=== PATIENT | female | born 1940 | race Caucasian/White ===

== ENCOUNTER 2016-08-14 22:47 | Inpatient (IN) | payer MEDICARE, MEDICAID ==
[~2016-08-14] VITALS: Ht 170.2 cm; Wt 120.1 kg
[~2016-08-14 22:47] MED LIST: AMARYL1 MG PO; AMBIEN 5MG TABLE5 MG PO; AMITRIPTYLINE100 MG PO; ANTI-DIARRHEAL2 MG PO; ASPIRIN E.C. 8181 MG PO; ATIVAN 0.50.5 MG/TAB PO; BACTRIM DS 8001 TAB PO; BACTROBAN NASA0.9 GM NS; BENGAY ARTHRITI1 CRE; CALCIUM + D 6001 TAB PO; CELEXA 20MG20 MG/TAB PO; CLEOCIN HCL300 MG PO; COLACE 100100 MG/CAP PO; CORDARONE200 MG/TAB PO; COREG 6.256.25 MG/TA PO; COUMADIN 2MG2 MG/TAB PO; DEMADEX 20MG20 M1 PO; DESYREL 100MG100 MG PO; DESYREL 50MG50 MG PO; DESYREL DIVIDO150 M1 PO; DOXYCYCLINE 10100 MG PO; ELAVIL100 MG PO; ELIQUIS 2.5 PO; ENBREL50 MG/ML SC; FENTANYL 25 MCG TOP; FERROUS GL325 MG/TAB PO; FLEXERIL 1010 MG/TAB PO; FOLIC ACID 11 MG/TA1 PO; FOLIC ACID1 MG PO; GENTEAL0.32 OP; GLUCOPHAGE500 MG/TAB PO; HUMALOG100 U/ML SQ; HYDROCODONE/APAP PO; IMDUR 30MG30 MG/TAB PO; IRON325 MG PO; IRON65 M1 PO; K-DUR20 MEQ PO; K-TAB10 PO; LAMISIL250 M1; LASIX 20MG TABL20 MG PO; LASIX 40MG TABL40 MG PO; LEVAQUIN 750MG750 M1 PO; LEVOTHYROXIN0.088 M1 PO; LEXAPRO 10MG10 MG PO; LEXAPRO20 MG PO; LIPITOR 10MG10 MG PO; LISINOPRIL5 MG PO; LOPROX TP; LOTRIMIN1% TP; LOW DOSE ASPIRI81 MG PO; MAG-OX 400400 MG/TAB PO; METFORMIN500 MG PO; METHOTREX IM; METHOTREXA50 MG/2 ML IJ; METHOTREXA50 MG/2 ML SC; METHOTREXA50 MG/2 ML SQ; METOCLOPRAMIDE10 MG PO; METOPROLOL SUCC25 M1 PO; MILK OF MAGNESI30 ML PO; MILLIPRED DP5 MG PO; MIRALAX PA17 GM/Dose PO; MIRAPEX 1MG PO; MONODOX100 PO; MULTIPLE VITAMI1 T17 PO; NEXIUM40 MG PO; NORCO 325 MG-101 TAB PO; NORCO 325 MG-51 TAB PO; NOVOLOG 100U100 U/M1 SQ; NYAMYC100000 U/G TP; NYSTATIN POWDER15 GM; OTREXUP25 MG/0.4 SQ; OXY IR5 MG PO; PEPCID 20MG TAB20 MG PO; PERCOCET 325 MG1 TAB PO; PHENERGAN 25 TA25 MG PO; PRADAXA 150MG150 MG PO; PREDNISONE 5MG5 MG PO; PREDNISONE1 MG PO; PREDNISONE10 MG PO; PREDNISONE20 MG PO; PRIL40 PO; PROMETHAZINE12.5 M5 PO; REGLAN 10MG10 MG/TAB PO; REQUIP 1MG T1 MG/TAB PO; RESTASIS 60VL OP; RESTASIS0.05% OP; ROXICODONE 55 MG/TAB PO; SOMA 350MG350 MG/TAB PO; SOMA250 MG PO; SYNTHROID0.05 MG/TA PO; SYNTHROID0.112 MG/T PO; THEO-24100 MG PO; TYLENOL 325MG325 MG PO; ULTRAM 50MG TAB50 MG; VESICARE10 MG PO; VITAMIN C500 MG PO; WARFARIN2 MG PO; XANAX .25M0.25 MG/TA PO; ZAROXOLYN 2.52.5 MG PO; ZESTRIL 5MG5 MG PO; ZOFRAN 4MG T4 MG/TAB PO; ZYVOX 600MG600 MG PO; [UNRECOGNIZED DRUG - OTHER] PO
[2016-08-14 23:40] LABS: BASO % 0.2 % (0.0-2.0); EOS # 0.1 (0.0-0.7); EOS % 1.1 % (0-4.0); GRAN # 11.8 (1.4-6.5); GRAN % 89.9 % (42.2-75.2); LYMPH # 0.8 (1.2-3.4); LYMPH % 6.3 % (20.0-51.0); MEAN CELL VOLUME 92 fl (80.0-100.0); MEAN CORPUSCULAR HGB CONC 31 g/dl (33.0-37.0); MONO # 0.2 (0.1-0.6); MONO % 1.7 % (1.7-9.3); PLATELET COUNT 121 K/mm3 (130-400); RED BLOOD COUNT 2.87 M/mm3 (4.10-5.30); REDCELL DISTRIBUTION WIDTH-CV 18.5 % (11.5-14.5); WHITE BLOOD COUNT 13.1 K/mm3 (4.8-10.8)
[2016-08-14 23:42] LABS: HEMATOCRIT 26.4 % (37.0-47.0); HEMOGLOBIN 8.2 g/dl (12.5-16.0); MEAN CORPUSCULAR HEMOGLOBIN 29 pg (27.0-31.0)
[2016-08-14 23:55] LABS: ADJUSTED CALCIUM 9.3 mg/dL (8.4-10.2); ALBUMIN 3.9 gm/dL (3.5-5.0); BILIRUBIN,TOTAL 1.1 mg/dL (0.0-1.0); C-REACTIVE PROTEIN 3.1 mg/dL (0.0-0.9); CALCIUM 9.2 mg/dL (8.4-10.2); CREATININE, serum 1.11 mg/dL (0.52-1.25); POTASSIUM 4.1 mmol/L (3.4-5.0)
[2016-08-15] VITALS (929 sets, daily range): BP systolic 64–132; BP diastolic 29–79; PULSE 59–97; TEMP 98.2–101.2; O2SAT 74–100
[2016-08-15] MEDS ORDERED: NORCO 325 MG-101 TAB PO ×2 (00:04→00:05)
[2016-08-15] MEDS ORDERED: ZYVOX 600MG600 MG PO (00:05)
[2016-08-15] MEDS ORDERED: SYNTHROID0.125 MG/T PO (00:05)
[2016-08-15] MEDS ORDERED: DEMADEX 20MG20 M1 PO ×2 (00:06→00:29)
[2016-08-15] MEDS ORDERED: CORDARONE200 MG/TAB PO (00:06)
[2016-08-15] MEDS ORDERED: PREDNISONE 5MG5 MG PO (00:07)
[2016-08-15] MEDS ORDERED: ASPIRIN E.C. 8181 MG PO (00:07)
[2016-08-15] MEDS ORDERED: FOLIC ACID 11 MG/TA1 PO (00:08)
[2016-08-15] MEDS ORDERED: IMDUR 30MG30 MG/TAB PO (00:08)
[2016-08-15] MEDS ORDERED: PRILOSEC 20MG20 MG PO (00:08)
[2016-08-15] MEDS ORDERED: KLOR-CON M2020 MEQ PO (00:09)
[2016-08-15 00:10] LABS: PH 7 (5-8); SQUAMOUS EPITHELIAL 0-2 /hpf; URINE APPEARANCE Clear; URINE BACTERIA None Seen /hpf; URINE BILIRUBIN Negative (NEGATIVE); URINE BLOOD 1+ (NEGATIVE); URINE COLOR Yellow; URINE GLUCOSE Negative (NEGATIVE); URINE KETONE Negative (NEGATIVE); URINE RBC 0-2 /hpf; URINE UROBILINOGEN Negative (NEGATIVE)
[2016-08-15] MEDS ORDERED: LEXAPRO 10MG10 MG PO (00:10)
[2016-08-15] MEDS ORDERED: MIRALAX PA17 GM/Dose PO (00:10)
[2016-08-15] MEDS ORDERED: LIPITOR 10MG10 MG PO (00:10)
[2016-08-15] MEDS ORDERED: PROBIOTIC ACID1 EAC3 PO (00:12)
[2016-08-15] MEDS ORDERED: GLUCOPHAGE500 MG/TAB PO ×2 (00:12→00:13)
[2016-08-15] MEDS ORDERED: MAG-OX 400400 MG/TAB PO (00:13)
[2016-08-15] MEDS ORDERED: FERROUS GL325 MG/TAB PO (00:13)
[2016-08-15] MEDS ORDERED: HUMALOG100 U/ML SQ (00:16)
[2016-08-15] MEDS ORDERED: COREG 3.123.125 MG/T PO (00:17)
[2016-08-15] MEDS ORDERED: MONODOX100 PO (00:17)
[2016-08-15] MEDS ORDERED: ELIQUIS 2.5 PO (00:17)
[2016-08-15] MEDS ORDERED: METHOTREXATE50/2 SQ (00:28)
[2016-08-15] MEDS ORDERED: MIRAPEX1.5 MG PO (00:29)
[2016-08-15 07:16] LABS: PH 8 (5-8); SQUAMOUS EPITHELIAL None Seen /hpf; URINE APPEARANCE Clear; URINE BACTERIA None Seen /hpf; URINE BILIRUBIN Negative (NEGATIVE); URINE BLOOD Negative (NEGATIVE); URINE COLOR Yellow; URINE GLUCOSE Negative (NEGATIVE); URINE KETONE Negative (NEGATIVE); URINE RBC 0-2 /hpf; URINE UROBILINOGEN Negative (NEGATIVE); URINE WBC 0-2 /hpf
[2016-08-15 07:51] LABS: PROTHROMBIN TIME 22.9 SECONDS (9.7-12.8)
[2016-08-15 07:53] LABS: BASO % 0.2 % (0.0-2.0); EOS # 0.1 (0.0-0.7); EOS % 0.5 % (0-4.0); GRAN # 9.7 (1.4-6.5); GRAN % 90.7 % (42.2-75.2); LYMPH # 0.8 (1.2-3.4); LYMPH % 7.2 % (20.0-51.0); MEAN CELL VOLUME 91 fl (80.0-100.0); MEAN CORPUSCULAR HGB CONC 31 g/dl (33.0-37.0); MEAN PLATELET VOLUME 11.5 fl (7.4-10.4); MONO # 0.1 (0.1-0.6); MONO % 0.7 % (1.7-9.3); PLATELET COUNT 95 K/mm3 (130-400); REDCELL DISTRIBUTION WIDTH-CV 18.4 % (11.5-14.5); WHITE BLOOD COUNT 10.7 K/mm3 (4.8-10.8)
[2016-08-15 08:01] LABS: HEMATOCRIT 21.9 % (37.0-47.0); HEMOGLOBIN 6.8 g/dl (12.5-16.0); MEAN CORPUSCULAR HEMOGLOBIN 28 pg (27.0-31.0)
[2016-08-15 08:13] LABS: ADJUSTED CALCIUM 8.9 mg/dL (8.4-10.2); ALANINE AMINOTRANSFERASE 30 U/L (9-52); ALBUMIN 2.9 gm/dL (3.5-5.0); ALKALINE PHOSPHATASE 79 U/L (50-136); ANION GAP 11 mmol/L (7-16); BILIRUBIN,TOTAL 1.4 mg/dL (0.0-1.0); BLOOD UREA NITROGEN 18 mg/dL (7-17); CARBON DIOXIDE 27 mmol/L (22-30); CHLORIDE 100 mmol/L (98-107); CREATININE, serum 1.22 mg/dL (0.52-1.25); GLUCOSE 110 mg/dL (74-106); POTASSIUM 3.5 mmol/L (3.4-5.0); SODIUM 137 mmol/L (137-145); TOTAL PROTEIN 5.7 gm/dL (6.4-8.2)
[2016-08-15 08:25] LABS: SALICYLATE < 1.0 mg/dL; TROPONIN-I 0.041 ng/mL (0.000-0.034)
[2016-08-15 09:09] LABS: VENOUS BLOOD GAS BE -1.1 (-4-4); VENOUS BLOOD GAS SAO2 74.3 % (60-80)
[2016-08-15 09:10] LABS: VENOUS BLOOD GAS SITE CENTRAL LINE
[2016-08-15 09:40] LABS: HEMATOCRIT 20.8 % (37.0-47.0); HEMOGLOBIN 6.4 g/dl (12.5-16.0)
[2016-08-15 10:16] LABS: ARTERIAL BLD GAS O2 SATURATION 97.2 % (92-100); ARTERIAL BLD GAS TCO2 CT 24.2; ARTERIAL BLOOD GAS BASE EXCESS -1.6 (-2-2); ARTERIAL BLOOD GAS PO2 116.3 mmHg (80-100); ARTERIAL BLOOD GAS PO2T 116.3 (80-100); OXYHEMOGLOBIN 95.4 %
[2016-08-15 10:17] LABS: ABG VENTILATOR TIDAL VOLUME 450 mL; ATS? NO
[2016-08-15 13:32] LABS: VENOUS BLOOD GAS BE -5.5 (-4-4); VENOUS BLOOD GAS SAO2 73.8 % (60-80)
[2016-08-15 13:33] LABS: VENOUS BLOOD GAS SITE CENTRAL LINE
[2016-08-15 18:43] LABS: HEMATOCRIT 27.5 % (37.0-47.0); HEMOGLOBIN 8.7 g/dl (12.5-16.0)
[2016-08-15 18:52] LABS: MAGNESIUM 1.7 mg/dL (1.6-2.3); POTASSIUM 3.3 mmol/L (3.4-5.0)
[2016-08-16] VITALS (846 sets, daily range): BP systolic 100–152; BP diastolic 39–74; PULSE 59–61; TEMP 98.1–98.9; O2SAT 70–100
[2016-08-16 05:46] LABS: MEAN CELL VOLUME 89 fl (80.0-100.0); MEAN CORPUSCULAR HGB CONC 32 g/dl (33.0-37.0); MEAN PLATELET VOLUME 11.1 fl (7.4-10.4); PLATELET COUNT 95 K/mm3 (130-400); REDCELL DISTRIBUTION WIDTH-CV 18.2 % (11.5-14.5); WHITE BLOOD COUNT 7.3 K/mm3 (4.8-10.8)
[2016-08-16 05:55] LABS: INR 1.9 (0.8-3.0); PROTHROMBIN TIME 21.6 SECONDS (9.7-12.8)
[2016-08-16 05:58] LABS: PARTIAL THROMBOPLASTIN TIME 41.7 SECONDS (26.0-37.0)
[2016-08-16 05:59] LABS: HEMATOCRIT 24.9 % (37.0-47.0); HEMOGLOBIN 7.9 g/dl (12.5-16.0); MEAN CORPUSCULAR HEMOGLOBIN 28 pg (27.0-31.0)
[2016-08-16 06:00] LABS: ADD PATHOLOGY DIFF REVIEW NO; ADJUSTED CALCIUM 9.5 mg/dL (8.4-10.2); ALBUMIN 2.5 gm/dL (3.5-5.0); BILIRUBIN,TOTAL 1.4 mg/dL (0.0-1.0); CALCIUM 8.3 mg/dL (8.4-10.2); CREATININE, serum 0.87 mg/dL (0.52-1.25); MAGNESIUM 2.3 mg/dL (1.6-2.3); PHOSPHOROUS 3.7 mg/dL (2.5-4.5); POTASSIUM 3.2 mmol/L (3.4-5.0); TOTAL PROTEIN 5.2 gm/dL (6.4-8.2)
[2016-08-16 09:43] LABS: ANISOCYTOSIS 2+; BAND 13 % (0-10); MICROCYTOSIS 1+; NEUTROPHILS 82 % (42.0-75.2); OVALOCYTES 1+; PLATELET ESTIMATE DECREASED (NORMAL); TEAR DROP CELLS 1+; TOTAL CELLS COUNTED 100
[2016-08-16 09:44] LABS: HYPOCHROMIA 1+; TOXIC GRANULATION PRESENT
[2016-08-16 10:04] LABS: ARTERIAL BLD GAS O2 SATURATION 95.6 % (92-100); ARTERIAL BLD GAS TCO2 CT 23.8; ARTERIAL BLOOD GAS BASE EXCESS -1.8 (-2-2); ARTERIAL BLOOD GAS HCO3 22.7 meq/L (22-26); ARTERIAL BLOOD GAS PO2 86.1 mmHg (80-100); ARTERIAL BLOOD GAS PO2T 86.1 (80-100); OXYHEMOGLOBIN 94.5 %
[2016-08-16 10:05] LABS: ALLEN TEST YES; ALLENS TEST RESULT PASS; ATS? YES
[2016-08-16 11:48] LABS: TROPONIN-I 0.014 ng/mL (0.000-0.034)
[2016-08-16 15:09] LABS: HEMOGLOBIN 8.6 g/dl (12.5-16.0)
[2016-08-16 15:10] LABS: HEMATOCRIT 27.4 % (37.0-47.0)
[2016-08-17] VITALS (245 sets, daily range): BP systolic 100–148; BP diastolic 57–94; PULSE 59–65; TEMP 96.2–98.2; O2SAT 74–100
[2016-08-17 05:53] LABS: MEAN CELL VOLUME 92 fl (80.0-100.0); MEAN CORPUSCULAR HGB CONC 31 g/dl (33.0-37.0); MEAN PLATELET VOLUME 11.5 fl (7.4-10.4); PLATELET COUNT 89 K/mm3 (130-400); RED BLOOD COUNT 2.84 M/mm3 (4.10-5.30); REDCELL DISTRIBUTION WIDTH-CV 18.6 % (11.5-14.5); WHITE BLOOD COUNT 4.6 K/mm3 (4.8-10.8)
[2016-08-17 05:57] LABS: MEAN CORPUSCULAR HEMOGLOBIN 28 pg (27.0-31.0)
[2016-08-17 05:58] LABS: ADD PATHOLOGY DIFF REVIEW NO
[2016-08-17 06:02] LABS: ADJUSTED CALCIUM 9.6 mg/dL (8.4-10.2); ALBUMIN 2.8 gm/dL (3.5-5.0); BILIRUBIN,TOTAL 1.4 mg/dL (0.0-1.0); CALCIUM 8.6 mg/dL (8.4-10.2); CREATININE, serum 0.76 mg/dL (0.52-1.25); MAGNESIUM 2.3 mg/dL (1.6-2.3); PHOSPHOROUS 2.7 mg/dL (2.5-4.5); POTASSIUM 3.9 mmol/L (3.4-5.0); TOTAL PROTEIN 5.6 gm/dL (6.4-8.2)
[2016-08-17 06:07] LABS: INR 1.4 (0.8-3.0); PROTHROMBIN TIME 15.8 SECONDS (9.7-12.8)
[2016-08-17 06:09] LABS: PARTIAL THROMBOPLASTIN TIME 35.3 SECONDS (26.0-37.0)
[2016-08-17 06:24] LABS: BAND 10 % (0-10); BASOPHIL 1 % (0-2); EOSINOPHIL 1 % (0-4); METAMYELOCYTE 1 % (0-0); NEUTROPHILS 78 % (42.0-75.2); PLATELET ESTIMATE DECREASED (NORMAL); TOTAL CELLS COUNTED 100
[2016-08-17 07:00] LABS: ANISOCYTOSIS 2+; BURR CELLS 1+; HYPOCHROMIA 1+; MICROCYTOSIS 1+; OVALOCYTES 1+; TEAR DROP CELLS 1+; TOXIC GRANULATION PRESENT
[2016-08-17 21:54] LABS: ARTERIAL BLD GAS O2 SATURATION 97.9 % (92-100); ARTERIAL BLD GAS TCO2 CT 17.9; ARTERIAL BLOOD GAS BASE EXCESS -8.2 (-2-2); ARTERIAL BLOOD GAS HCO3 16.9 meq/L (22-26); ARTERIAL BLOOD GAS PHT 7.32 C (7.35-7.45); ARTERIAL BLOOD GAS pH 7.32 (7.35-7.45)
[2016-08-17 21:55] LABS: ARTERIAL BLOOD GAS PO2 128.6 mmHg (80-100); ARTERIAL BLOOD GAS PO2T 128.6 (80-100)
[2016-08-17 21:56] LABS: ALLEN TEST NO; ATS? YES
[2016-08-18] VITALS (538 sets, daily range): BP systolic 90–153; BP diastolic 54–113; PULSE 59–62; TEMP 36.1; O2SAT 93–100
[2016-08-18 06:06] LABS: ARTERIAL BLD GAS O2 SATURATION 96.2 % (92-100); ARTERIAL BLD GAS TCO2 CT 18.8; ARTERIAL BLOOD GAS BASE EXCESS -6.8 (-2-2); ARTERIAL BLOOD GAS HCO3 17.8 meq/L (22-26); ARTERIAL BLOOD GAS PHT 7.36 C (7.35-7.45); ARTERIAL BLOOD GAS PO2 93.4 mmHg (80-100); ARTERIAL BLOOD GAS PO2T 93.4 (80-100); ARTERIAL BLOOD GAS pH 7.36 (7.35-7.45); OXYHEMOGLOBIN 95.3 %
[2016-08-18 06:07] LABS: ALLEN TEST NO; ATS? YES
[2016-08-18 06:26] LABS: MEAN CELL VOLUME 92 fl (80.0-100.0); MEAN CORPUSCULAR HGB CONC 31 g/dl (33.0-37.0); MEAN PLATELET VOLUME 12.2 fl (7.4-10.4); PLATELET COUNT 102 K/mm3 (130-400); RED BLOOD COUNT 3.44 M/mm3 (4.10-5.30); REDCELL DISTRIBUTION WIDTH-CV 18.6 % (11.5-14.5); WHITE BLOOD COUNT 6.6 K/mm3 (4.8-10.8)
[2016-08-18 06:34] LABS: INR 2.6 (0.8-3.0); PROTHROMBIN TIME 29.2 SECONDS (9.7-12.8)
[2016-08-18 06:35] LABS: ADD PATHOLOGY DIFF REVIEW NO; ADJUSTED CALCIUM 9.8 mg/dL (8.4-10.2); BILIRUBIN,TOTAL 1.9 mg/dL (0.0-1.0); CREATININE, serum 1.17 mg/dL (0.52-1.25); HEMATOCRIT 31.8 % (37.0-47.0); HEMOGLOBIN 9.7 g/dl (12.5-16.0); MAGNESIUM 2.5 mg/dL (1.6-2.3); MEAN CORPUSCULAR HEMOGLOBIN 28 pg (27.0-31.0); PHOSPHOROUS 3.6 mg/dL (2.5-4.5); POTASSIUM 4.6 mmol/L (3.4-5.0); TOTAL PROTEIN 5.8 gm/dL (6.4-8.2)
[2016-08-18 06:36] LABS: PARTIAL THROMBOPLASTIN TIME 38.2 SECONDS (26.0-37.0)
[2016-08-18 12:04] LABS: NEUTROPHILS 76 % (42.0-75.2)
[2016-08-18 12:05] LABS: PLATELET ESTIMATE DECREASED (NORMAL)
[2016-08-18 12:12] LABS: BAND 16 % (0-10); METAMYELOCYTE 1 % (0-0); TOTAL CELLS COUNTED 100
[2016-08-18 12:24] LABS: ADD PATHOLOGY DIFF REVIEW NO
[2016-08-18 12:33] LABS: MEAN CELL VOLUME 92 fl (80.0-100.0); MEAN CORPUSCULAR HGB CONC 31 g/dl (33.0-37.0); MEAN PLATELET VOLUME 12.3 fl (7.4-10.4); PLATELET COUNT 108 K/mm3 (130-400); RED BLOOD COUNT 3.35 M/mm3 (4.10-5.30); REDCELL DISTRIBUTION WIDTH-CV 18.6 % (11.5-14.5); WHITE BLOOD COUNT 6.2 K/mm3 (4.8-10.8)
[2016-08-18 12:35] LABS: HEMATOCRIT 30.8 % (37.0-47.0); HEMOGLOBIN 9.6 g/dl (12.5-16.0); MEAN CORPUSCULAR HEMOGLOBIN 29 pg (27.0-31.0)
[2016-08-18 12:54] LABS: ADJUSTED CALCIUM 10.1 mg/dL (8.4-10.2); ALBUMIN 2.9 gm/dL (3.5-5.0); BILIRUBIN,TOTAL 1.9 mg/dL (0.0-1.0); CALCIUM 9.2 mg/dL (8.4-10.2); CREATININE, serum 1.21 mg/dL (0.52-1.25); POTASSIUM 4.5 mmol/L (3.4-5.0); TOTAL PROTEIN 5.7 gm/dL (6.4-8.2)
[2016-08-18 13:20] LABS: TROPONIN-I 0.288 ng/mL (0.000-0.034)
[2016-08-18 15:46] LABS: BAND 15 % (0-10); NEUTROPHILS 79 % (42.0-75.2); PLATELET ESTIMATE DECREASED (NORMAL); TOTAL CELLS COUNTED 100
[2016-08-18 15:48] LABS: ANISOCYTOSIS 2+; HYPOCHROMIA 2+
[2016-08-18 15:49] LABS: BURR CELLS 2+; MICROCYTOSIS 2+; TEAR DROP CELLS 1+
[2016-08-18 15:50] LABS: OVALOCYTES 1+; POIKILOCYTOSIS 2+; TOXIC GRANULATION PRESENT
== END 2016-08-18 14:00 | disposition short-term general hospital (02) | DRG 853 ==
LOC: COL.ER 22:47 → ICU 08-15 00:22 → MEDICAL 08-17 12:39 → ICU 08-17 12:39 → MEDICAL 08-17 12:39 → ICU 08-18 01:10
PROVIDERS: Emergency Medicine; Internal Medicine; Internal Medicine Pulmonary Disease; Nurse Practitioner Family
PROC: 0BH18EZ Insertion of Endotracheal Airway into Trachea, Via Natural or Artificial Opening Endoscopic (ICD-10-PCS; principal; 2016-08-15)
PROC: 0B9B8ZZ Drainage of Left Lower Lobe Bronchus, Via Natural or Artificial Opening Endoscopic (ICD-10-PCS; 2016-08-15)
PROC: 5A1935Z Respiratory Ventilation, Less than 24 Consecutive Hours (ICD-10-PCS; 2016-08-15)
PROC: 0B9B8ZX Drainage of Left Lower Lobe Bronchus, Via Natural or Artificial Opening Endoscopic, Diagnostic (ICD-10-PCS; 2016-08-15)
PROC: 0BH17EZ Insertion of Endotracheal Airway into Trachea, Via Natural or Artificial Opening (ICD-10-PCS; 2016-08-18)
PROC: 5A1935Z Respiratory Ventilation, Less than 24 Consecutive Hours (ICD-10-PCS; 2016-08-18)
DX: A41.81 Sepsis due to Enterococcus (principal); J96.21 Acute and chronic respiratory failure with hypoxia; R65.21 Severe sepsis with septic shock; J18.9 Pneumonia, unspecified organism; I50.23 Acute on chronic systolic (congestive) heart failure; L03.116 Cellulitis of left lower limb; L03.115 Cellulitis of right lower limb; E87.1 Hypo-osmolality and hyponatremia; I51.81 Takotsubo syndrome; E87.2 Acidosis; M86.171 Other acute osteomyelitis, right ankle and foot; E11.22 Type 2 diabetes mellitus with diabetic chronic kidney disease; B95.2 Enterococcus as the cause of diseases classified elsewhere; N18.9 Chronic kidney disease, unspecified; I48.0 Paroxysmal atrial fibrillation; Z87.891 Personal history of nicotine dependence; Z95.0 Presence of cardiac pacemaker; I27.2 Other secondary pulmonary hypertension; D64.9 Anemia, unspecified; L89.152 Pressure ulcer of sacral region, stage 2
CPT/HCPCS: 99223-AI; 99232-AI; 99233-AI; 99239; A6197; A6212; A9503; C1751; J0330; J1170; J1250; J1644; J1650; J1720; J1815; J2250; J2270; J2543; J2704; J2930; J3010; J3370; J3475; J3480; J7030; J7040; J7050; J7060; J7120; J7512; P9016